=== PATIENT | male | born 1965 | race Caucasian/White ===

== ENCOUNTER → 2017-01-18 | Outpatient (CLI) | payer BC ==
[~2017-01-18] MED LIST: BENICAR PO
--- NOTE | ~2017-01-18 | US49 ---
[facility] A Service of [facility] RADIOLOGY TEXT RESULTS PATIENT: CAIN CARPIO LOCATION: [facility] : 63 UNIT #: [id number] AGE: [address]: John Connell MD SEX: M ORDER DR: [id number] [facility] [address] [place], [place] [address] [id number] O MR#: [id number] Acc #: [id number] NAME: CAIN CARPIO : 1965 SEX: M STUDY DATE/TIME: 01/18/2017 13:28 UNIT: [facility] ROOM: STUDY DESCRIPTION: US Extremity Non Vasc Complete Attending Physician: John Connell M.D. Referring Physician: John Connell M.D. Ordering Physician: John Connell M.D. Primary Care Physician: John Connell M.D. MEDICAL IMAGING REPORT This report is preliminary unless electronic signature is present EXAM Ultrasound of the left inguinal region, nonvascular 01/18/2017. HISTORY Pain in the left inguinal fold for 2 months, causing hip to occasionally go out. Hypertension, diabetes and hyperlipidemia. No known injury. FINDINGS Ultrasound of the site of patient's pain in the left inguinal region reveals normal muscular and subcutaneous tissues. No cystic or solid mass lesions were identified. IMPRESSION Negative ultrasound of the left inguinal region. Dictated by... Cain Crespo M.D. THIS IS AN ELECTRONICALLY VERIFIED REPORT Cain Crespo M.D. at 01/19/2017 2:20 PM KRT/gz TD: 01/19/2017 10:58 JOB #: [id number] MEDICAL IMAGING REPORT Page 1 of 1 COPY
== END | disposition home or self-care (01) ==
LOC: CGUS 12:23
DX: S39.013A Strain of muscle, fascia and tendon of pelvis, initial encounter (principal)
CPT/HCPCS: 76881